=== PATIENT | female | born 1935 | race Two or more races ===

== ENCOUNTER 2016-12-08 13:53 | Emergency (ER) | payer MEDICARE, OTHER ==
[~2016-12-08] VITALS: Ht 160 cm; Wt 86.0 kg
[~2016-12-08 13:53] MED LIST: ADV25050 INH; ASPI81TA3 PO; ATOR80TA75 PO; CLOP75TA27 PO; CLOT30CR35 TOP; DICL1ADH6 TRANSDERM; DONE5TAB7 PO; ESOM40CA PO; IBUP-1542 PO; ICOS1CAP PO; LORA0.5T PO; METO-448 PO; SERT25TA83 PO; TRAZ50TA18 PO; VALS160T26 PO
[2016-12-08 13:59] VITALS: Ht 160 cm; Wt 86.0 kg
--- NOTE | 2016-12-08 14:14 | ERA ---
ER Documentation Chief Complaint Date/Time DATE: 12/08/16 TIME: 14:13 Chief Complaint BATISTA HPI The patient is a 81-year-old female,presenting with left-sided headache that began last night. She has similar symptoms previously, denies blurred vision, dizziness, facial pain, neck pain, chest pain, dyspnea, abdominal pain, vomiting. He was seen by a physician who sent her to the ER. He does not smoke nor drink but under a lot of stress Past medical history: CAD, dementia, asthma, hypertension, COPD, anxiety, dyslipidemia Past surgical history: Stent PCI ROS All systems reviewed and are negative except as per history of present illness. Medications Home Meds Active Scripts Hydrocodone/Acetaminophen ([place] 5-325 Tablet) 1 Each Tablet, 1 EACH PO Q6, #10 TAB Prov:MILO CLAY MD 12/08/16 Ibuprofen* (Motrin*) 600 Mg Tab, 600 MG PO Q8, #10 TAB Prov:BRANDT EGAN MD 02/01/16 Atorvastatin* (Atorvastatin*) 80 Mg Tablet, 80 MG PO QHS, #30 TAB 3 Refills Prov:RIO VALLES 12/26/15 Valsartan (Valsartan) 160 Mg Tablet, 160 MG PO DAILY for 30 Days, TAB 3 Refills Prov:RIO VALLES 12/26/15 Clopidogrel Bisulfate (Clopidogrel) 75 Mg Tablet, 75 MG PO DAILY for 30 Days, TAB 11 Refills Prov:RIO VALLES 12/26/15 Aspirin (Aspirin) 81 Mg Chew, 81 MG PO DAILY for 30 Days, TAB 3 Refills Prov:RIO VALLES 12/26/15 Metoprolol Tartrate* (Lopressor*) 25 Mg Tab, 25 MG PO BID, #60 TAB Prov:MAC KOCH MD 06/30/14 Reported Medications Diclofenac Epolamine (Flector) 30 Ea Adh..patch, 1 PATCH TRANSDERM Q12 06/29/14 Clotrimazole* (Lotrimin*) 1%-30 Gm Cream..g., 1 APPLIC TOP DAILY, TUB 06/29/14 Esomeprazole Mag Trihydrate (Nexium) 40 Mg Capsule.dr, 40 MG PO DAILY, CAP 06/29/14 Salmeterol Xinaf/Fluticasone* (Advair*) 250-50 Diskus Inhaler, 1 INH INH BID, INH 06/29/14 Sertraline Hcl* (Sertraline Hcl*) 25 Mg Tablet, 25 MG PO DAILY, TAB 06/29/14 Trazodone Hcl* (Trazodone Hcl*) 50 Mg Tablet, 100 MG PO QHS, TAB 06/29/14 Icosapent Ethyl (VASCEPA) 1 Gm Capsule, 1 GM PO QID 06/29/14 Lorazepam* (Lorazepam*) 0.5 Mg Tablet, 0.5 MG PO DAILY, TAB 06/29/14 Donepezil* (Donepezil*) 5 Mg Tablet, 5 MG PO DAILY, TAB 06/29/14 Allergies Allergies: Coded Allergies: No Known Allergy (Unverified , 06/29/14) PMhx/Soc History of Surgery: Yes (Cardiac Stent Placement (2016)) Anesthesia Reaction: No Hx Neurological Disorder: No Hx Respiratory Disorders: No Hx Cardiac Disorders: Yes (HTN) Hx Psychiatric Problems: Yes (Anxiety) Hx Miscellaneous Medical Probl: Yes (Dyslipidemia) Hx Alcohol Use: No Hx Substance Use: No Hx Tobacco Use: No Physical Exam Vitals Vital Signs Date Time Temp Pulse Resp B/P Pulse Ox O2 Delivery O2 Flow Rate FiO2 12/08/16 16:08 97.4 70 19 180/76 98 Room Air 12/08/16 13:59 98.2 90 20 186/87 98 Physical Exam Const: No acute distress. Very anxious Head: Atraumatic. Eyes: Normal Conjunctiva. ENT: Normal External Ears, Nose and Mouth. Neck: Full range of motion. No meningismus. Resp: Clear to auscultation bilaterally. Cardio: Regular rate and rhythm, no murmurs. Abd: Soft, non distended, normal bowel sounds, non tender. Skin: No petechiae or rashes. Back: No midline or flank tenderness. Ext: No cyanosis, or edema. Neur: Awake and alert. No focal deficit Psych: Normal Mood and Affect. Result Diagram: 12/08/16 1430 12/08/16 1430 Results 24 hrs Laboratory Tests Test 12/08/16 14:30 White Blood Count 5.210^3/ul Red Blood Count 3.9810^6/ul Hemoglobin 12.1g/dl Hematocrit 36.3% Mean Corpuscular Volume 91.2fl Mean Corpuscular Hemoglobin 30.4pg Mean Corpuscular Hemoglobin Concent 33.3g/dl Red Cell Distribution Width 12.3% Platelet Count 96090^3/UL Mean Platelet Volume 10.2fl Neutrophils % 59.8% Lymphocytes % 25.8% Monocytes % 10.9% Eosinophils % 2.7% Basophils % 0.4% Nucleated Red Blood Cells % 0.0/100WBC Neutrophils # 3.110^3/ul Lymphocytes # 1.410^3/ul Monocytes # 0.610^3/ul Eosinophils # 0.110^3/ul Basophils # 0.010^3/ul Nucleated Red Blood Cells # 0.010^3/ul Prothrombin Time 12.1Sec Prothrombin Time Ratio 0.9 INR International Normalized Ratio 0.90 Activated Partial Thromboplast Time 26.1Sec Sodium Level 138mmol/L Potassium Level 4.3mmol/L Chloride Level 105mmol/L Carbon Dioxide Level 25mmol/L Anion Gap 12 Blood Urea Nitrogen 14mg/dl Creatinine 0.43mg/dl Glucose Level 126mg/dl Calcium Level 9.2mg/dl Current Medications Medications (Trade) Dose Ordered Sig/Rodrigo Route PRN Reason Start Time Stop Time Status Last Admin Dose Admin Acetaminophen/ Hydrocodone Bitart ([place] (5/325)) 1 tab ONCE ONCE PO 12/08/16 14:30 12/08/16 14:31 DC 12/08/16 14:41 Ondansetron HCl (Zofran Inj) 4 mg ONCE STAT IV 12/08/16 14:28 12/08/16 14:30 DC 12/08/16 14:41 Procedures/MDM MEDICAL MAKING DECISION: The patient is a 81-year-old female, presenting with acute headache of unclear etiology, most likely due to acute anxiety and acute stress. She was treated with [place] 5 mg p.o. for headache and Zofran IV for nausea with good response. The differential diagnoses considered include but are not limited to subarachnoid hemorrhage, occult trauma, CVA, meningitis, encephalitis, hypertension, tension, migraine, cluster, narcotic withdrawal, cervical spine disease. Departure Diagnosis: Primary Impression: Headache Condition: Good Comments He was discharged with [place] and Zofran ODT I discussed the findings with the patient. I advised the patient to follow-up with the primary physician in about 1-2 days, sooner if needed and return if any concern. MILO CLAY MD Dec 08, 2016 14:14
[2016-12-08] MEDS ORDERED: ONDANSETRON 4 MG INJ IV STA (14:28)
[2016-12-08] MEDS ORDERED: HYDROCODONE/APAP (5/325) TAB PO ONE (14:30)
[2016-12-08 14:42] LABS: ADD SCAN DIFF NO
[2016-12-08 14:43] LABS: BASOPHILS % 0.4 % (0.0-2.0); EOSINOPHILS # 0.1 10^3/ul (0.0-0.5); EOSINOPHILS % 2.7 % (0.0-7.0); HEMATOCRIT 36.3 % (37.0-47.0); HEMOGLOBIN 12.1 g/dl (12.0-16.0); LYMPHOCYTES # 1.4 10^3/ul (0.8-2.9); LYMPHOCYTES % 25.8 % (15.0-51.0); MEAN CORPUSCULAR HEMOGLOBIN 30.4 pg (29.0-33.0); MEAN CORPUSCULAR HGB CONC 33.3 g/dl (32.0-37.0); MEAN CORPUSCULAR VOLUME 91.2 fl (82.0-101.0); MEAN PLATELET VOLUME 10.2 fl (7.4-10.4); MONOCYTE # 0.6 10^3/ul (0.3-0.9); MONOCYTES % 10.9 % (0.0-11.0); NEUTROPHIL # 3.1 10^3/ul (1.6-7.5); NEUTROPHILS % 59.8 % (39.0-77.0); PLATELET COUNT 245 10^3/UL (140-415); RED BLOOD COUNT 3.98 10^6/ul (4.20-5.40); RED CELL DISTRIBUTION WIDTH 12.3 % (11.5-14.5); WHITE BLOOD COUNT 5.2 10^3/ul (4.8-10.8)
[2016-12-08 14:54] LABS: CALCIUM 9.2 mg/dl (8.4-10.2); CREATININE 0.43 mg/dl (0.44-1.00); POTASSIUM 4.3 mmol/L (3.5-5.1)
[2016-12-08 14:56] LABS: INR 0.9; PROTIME 12.1 Sec (12.2-14.2); PT RATIO 0.9
[2016-12-08 14:57] LABS: PARTIAL THROMBOPLASTIN TIME 26.1 Sec (25.0-35.0)
--- NOTE | 2016-12-08 15:22 | RADRPT ---
PROCEDURE: Noncontrast CT Head. CLINICAL INDICATION: Headaches. TECHNIQUE: Noncontrast CT of the head was obtained. The administered radiation dose was CTDI vol = 44.26 mGy, DLP = 630.2 mGy-cm. One or more of the following dose reduction techniques were used: Aut omated exposure control, Adjustment of the mA and/or kV according to patient size, or Use of iterati ve reconstruction technique. COMPARISON: There are no similar studies submitted for comparison. Noncontrast MRI of the brain from June 30, 2014. FINDINGS: There is minimal generalized cerebral volume loss. There is a cavum septum pellucidum et vergae which is a normal variant. There are mild to moderate vascular calcifications within the intracranial carotid arteries. There is no loss of nguyen-white differentiation to suggest acute territorial infarction. There is no acute intracranial hemorrhage or extra-axial fluid collection. There is no mass effect. No midline shift is identified. The patient is status post bilateral lens surgery. The paranasal sinuses are well aerated. No destructive osseous lesion is identified. IMPRESSION: 1. No acute intracranial hemorrhage or extra-axial fluid collection. 2. Minimal generalized cerebral volume loss. Further findings as detailed above. RPTAT: AA .Timo Laird MD, Date Time Electronically viewed and signed by .Timo Laird MD, on 12/08/2016 15:22 .F/
[2016-12-08] MEDS ORDERED: HYDR-906 PO (15:36)
[2016-12-08 16:08] VITALS: BP 180/76; PULSE 70; RESP 19; TEMP 97.4
== END 2016-12-08 16:13 | disposition home or self-care (01) ==
LOC: E/R 13:53
DX: R51 Headache (principal); I10 Essential (primary) hypertension; J45.909 Unspecified asthma, uncomplicated; J44.9 Chronic obstructive pulmonary disease, unspecified; I25.10 Atherosclerotic heart disease of native coronary artery without angina pectoris; Z79.82 Long term (current) use of aspirin; Z98.61 Coronary angioplasty status
CPT/HCPCS: 36415; 70450; 80048; 85025; 85610; 85730; 96374; 99285; J2405